=== PATIENT | female | born 1970 | race Caucasian/White ===

== ENCOUNTER 2017-05-19 06:54 | Inpatient (IN) ==
[2017-05-19] MEDS ORDERED: SODIUM CHLORIDE 0.9% 1,000 ML IV STA (07:56)
[2017-05-19] MEDS ORDERED: LEVOFLOXACIN INJ 750 MG in PREMIX 1 EACH IV STA (07:56)
[2017-05-19] MEDS ORDERED: methylPREDNISolone SOD SUC 40 MG/1 ML VIAL IV STA (07:56)
[2017-05-19] MEDS ORDERED: methylPREDNISolone SOD SUC 125 MG/2 ML VIAL ONE (08:06)
[2017-05-19] MEDS: ALBUTEROL/IPRATROPIUM 3 ML NEB RESP TX SCH ×4 (08:15→20:08)
[2017-05-19 08:24] LABS: Basophils # 0.1 10*3/uL (0.0-0.2); Basophils % 0.5 % (0.0-0.8); Eosinophils # 0.3 10*3/uL (0.0-0.87); Eosinophils % 2.1 % (0.00-10.9); Hematocrit 42.8 VOL% (35.7-47.0); Hemoglobin 14.5 GM/DL (12.0-16.0); Immature Granulocytes % 0.5 %; Immature Granulocytes Absolute 0.07 #; Lymphocytes # 4.6 10*3/uL (1.4-4.0); Lymphocytes % 36.3 % (21.3-54.2); Mean Corpuscular HGB Conc 33.9 GM/DL (32-36); Mean Corpuscular Hemoglobin 30 PG (27-34); Mean Corpuscular Volume 88.8 FL (87-102); Mean Platelet Volume 11.7 FL (9.6-12.0); Monocytes # 1.1 10*3/uL (0.11-0.8); Monocytes % 8.2 % (1.7-12.7); Neutrophils # 6.7 10*3/uL (1.4-7.4); Neutrophils % 52.4 % (38.7-73.9); Platelet Count 192 T/CUMM (130-400); Red Blood Count 4.82 MC/CUMM (3.8-5.5); Red Cell Distribution Width 13.5 % (9.3-17.3); White Blood Count 12.7 T/CUMM (4-12)
[2017-05-19] MEDS ORDERED: LEVOFLOXACIN INJ 150 ML IV ONE (08:44)
[2017-05-19 08:53] LABS: Calcium 8.8 MG/DL (8.5-10.1); Osmolality,Calculated 279.4 MOS/KG (273-304); Potassium 3.7 MMOL/L (3.5-5.1)
--- NOTE | 2017-05-19 09:49 | Emergency Department Note ---
Joseph Singh Brittany, am scribing for, and in the presence of, Car Vail MD 08:05. eGnna Singh Thomas, MD, personally performed the services described in this documentation, ascribed by Raquel Ruiz in my presence, and it is both accurate and complete 945 . Arrival - Arrival Chief Complaint: Upper Respiratory Stated Complaint: hurting in chest and ribs when cough ED Nursing Triage Note: C/O Having coughing and congestion since Sun.,states was evaluated by immediate care clinic on sun., states she is having pain in chest when coughs , states they told her she had acute bronchititis., denies having increase temp., + chills at home Mode of Arrival: Ambulatory Limitations: No Limitations Source: Patient, RN Notes Reviewed - History of Present Illness HPI Narrative: Patient is a 46 y/o white female presenting to the ED with c/o cough and congestion which has been ongoing x4 days. Patient reports that she was seen by her PCP on Sunday, May 16 for the same complaints and was diagnosed with Bronchitis and Strep Throat with which she was sent home with Zithromax and Prednisone. Patient reports that she has not seen any improvement in symptoms and has began to experience chest pain with coughing excessively and upon lying in bed has frequent coughing that is only relieved with sitting up. Patient reports that she has been unable to sleep in bed due to excessive coughing spells, requiring her to sleep sitting up. Patient denies any abdominal pain, N/V/D, or fever. She is a current everyday cigarette smoker, but denies any prior history of COPD/Emphysema. Patient denies having any other complaints. Onset (ago): day(s) (4) Consistency: constant Date of Last Menstrual Period: hyst Allergies/Adverse Reactions: Allergies Allergy/AdvReac Type Severity Reaction Status Date / Time No Known Allergies Allergy Unverified 05/19/17 07:07 Review of System - Review of System 12 point system: reviewed and no additional remarkable complaints except as stated - Review of System Constitutional: Present: chills, weakness (generalized). Absent: fever Respiratory: Present: cough, other (congestion) Cardiovascular: Present: chest pain Gastrointestinal: Absent: abdominal pain, nausea, vomiting Medical,Surgical,& Family Hx - Social History Smoking Status: Smoker, status unknown Frequency of Alcohol Use: None Type of Drug Use: None Exam Vital Signs: Vital Signs Temperature 98.3 F 05/19/17 07:36 Pulse Rate 50 L 05/19/17 08:20 Respiratory Rate 16 05/19/17 08:20 Blood Pressure 107/67 05/19/17 07:36 O2 Sat by Pulse Oximetry 98 05/19/17 08:20 - General General appearance: alert, in no apparent distress - Head Head exam: Present: atraumatic, normocephalic - Eye Eye exam: Present: EOMI. Absent: conjunctival injection, periorbital swelling, periorbital tenderness - ENT ENT exam: Present: mucous membranes dry - Neck Neck exam: Present: full ROM, trachea midline - Chest Chest inspection: Present: symmetric chest wall rise - Respiratory Respiratory exam: Present: rhonchi (rhonchi on auscultation of the left base), wheezes (wheezes on auscultation of the left base). Absent: normal lung sounds bilaterally - Cardiovascular Cardiovascular exam: Present: normal rhythm, normal heart sounds. Absent: regular rate - Abdominal Exam Abdominal exam: Present: soft. Absent: distention, tenderness - Extremities Exam Extremities exam: Present: normal capillary refill. Absent: pedal edema, calf tenderness - Neurological Exam Neurological exam: Present: alert, oriented X3. Absent: motor sensory deficit - Psychiatric Psychiatric exam: Present: normal affect, normal mood - Skin Skin exam: Present: warm, dry, normal color Course - Reevaluation(s) Reevaluation #1: Feels somewhat better as long resting in semi-recumbent position Time: 09:46 - Consultations Consultation #1: Hospitalist Time: 09:47 Results - Labs CBC & BMP: 05/19/17 08:10 05/19/17 08:10 Lab Results: I have reviewed the patients labs Labs: Microbiology 05/19/17 07:43 Throat Group A Streptococcus Rapid Screen - Final Negative for Grp A Strep Ag 05/19/17 07:43 Nasal Aspirate Influenza Types A,B Antigen (RENETTA) - Final Negative for Influenza A Ag Negative for Influenza B Ag Laboratory Tests 05/19/17 08:10 WBC 12.7 H RBC 4.82 Hgb 14.5 Hct 42.8 Plt Count 192 Lymph # (Auto) 4.6 H Warrick # (Auto) 1.1 H Laboratory Tests 05/19/17 08:10 Sodium 140 Potassium 3.7 Chloride 106 Carbon Dioxide 29 BUN 18 Creatinine 0.80 BUN/Creatinine Ratio 22.00 H Glucose 83 Calcium 8.8 - Diagnostic Findings Procedure: Chest x-ray: image reviewed by me (My review: no acute changes) Disposition Clinical Impression: Left lower lobe pneumonia Case discussed with: patient Disposition: Still a Patient Time of Disposition: 09:51
[2017-05-19] MEDS ORDERED: ALBUTEROL 2.5 MG/3 ML NEB RESP TX PRN (09:54)
[2017-05-19] MEDS ORDERED: MORPHINE 2 MG/1 ML SYRINGE IV PRN (09:55)
[2017-05-19] MEDS ORDERED: ACETAMINOPHEN 325 MG TABLET PO PRN (09:55)
--- NOTE | 2017-05-19 10:46 | Hospitalist History & Physical ---
<Diana Khan - Last Filed: 05/19/17 10:44> Assessment and Plan (1) Nicotine dependence Status: Acute Assessment and plan: Patient reports current nicotine use. She reports that she is "1 pack smoker weekly". Discussed with patient the merits associated with smoking necessitation. Nicotine patch offered and ordered for the inpatient admission. Current Visit: Yes (2) Left lower lobe pneumonia Status: Acute Assessment and plan: The patient failed outpatient treatment. We will start empiric antibiotics, inhaled bronchodilators, intravenous corticosteroids, and intravenous fluids. We will recheck chest x-ray in a.m. Current Visit: Yes Qualifiers: Pneumonia type: due to unspecified organism Qualified Code(s): J18.1 - Lobar pneumonia, unspecified organism History of Present Illness Chief complaint: Cough and congestion History of present illness: This is a very pleasant 46-year-old female that presented to the ED at [facility] this morning for the evaluation of cough and congestion 4 days. Patient has a medical history significant for nicotine addiction and a surgical history significant for hysterectomy. The patient reported the onset of symptoms 4 days prior to presentation. Her symptoms became severe prompting her to present to her primary care physician on Sunday, May in which she was treated for bronchitis and strep throat. The patient reported that she was given intramuscular injections at the office and subsequently given prescriptions for prednisone, Levaquin, and Tessalon Perles. She reported that she started the regimen as recommended by her primary care physician however, her symptoms fail to improve. She reports an increase in coughing and an inability to lie flat. In addition, she reports that the coughing spells became so severe that she was unable to sleep. As her symptoms continued to worsen,she became alarmed prompting her to present to the ED for further evaluation. The patient was assessed at the time of ED presentation. The patient was noted to be bradycardic with a heart rate recorded at 51. The patient was noted to be violently coughing with increased respiratory effort noted. Prolonged inhaled bronchodilator treatments were initiated. Labs were obtained which were significant for a white blood cell count 12.7. Chest x-ray was essentially negative for any acute cardiopulmonary processes. After brief discussion with both Dr. Vail and Dr. Heart, the patient will be admitted to the hospitalist service for continuation of care. Home medications have been reviewed and reconciled. CODE STATUS discussed; patient is a FULL CODE. Home Medications Medication Instructions Recorded Confirmed Type Albuterol Sulfate [Ventolin HFA] 2 puffs INH Q6H PRN 05/19/17 05/19/17 History Azithromycin 500 mg PO BID 05/19/17 05/19/17 History Benzonatate [Benzonatate] 100 mg PO TID 05/19/17 05/19/17 History predniSONE TAB [PredniSONE] 20 mg PO BID 05/19/17 05/19/17 History Allergies Allergy/AdvReac Type Severity Reaction Status Date / Time Penicillins Allergy Unknown Verified 05/19/17 12:20 Medical,Surgical,& Family Hx - Surgical History Reproductive Surgeries: Surgical HX of;: Hysterectomy - Family History Family History: Reports;: Family Diabetes, Family Heart Disease, Family Hypertension - Social History Smoking Status: Current every day smoker Have you smoked in the last 12 months: Yes Time spent discussing smoking cessation with patient: 3 to 10 minutes Frequency of Alcohol Use: None Type of Drug Use: None Marital Status: Lives With:: Spouse Functional capacity: independent ambulation 12 point system: reviewed and no additional remarkable complaints except as stated - Respiratory Respiratory: Present: cough, dyspnea, dyspnea on exertion, pain on inspiration Exam - Constitutional Vitals: Period Temp Pulse Resp BP Sys/Nguyen Pulse Ox Last 24 Hr 98.3 F-98.3 F 50-65 15-18 107-107/67-67 97-98 General appearance: normal weight, mild distress - Head Head exam: Present: normal inspection, normocephalic, atraumatic - Eye Eye exam: Present: EOMI, conjunctival injection Pupils: Present: JADEN, normal accommodation - ENT ENT exam: Present: normal exam, normal external ear exam, normal oropharynx - Neck Neck exam: Present: normal inspection. Absent: lymphadenopathy, meningismus, thyromegaly - Respiratory Respiratory exam: Present: rhonchi (Noted at the left base upon auscultation), wheezes (Noted at the left base upon auscultation) - Cardiovascular Cardiovascular exam: Present: bradycardia. Absent: diastolic murmur, gallop, rubs, systolic murmur - GI/Abdominal GI/Abdominal exam: Present: normal bowel sounds, soft - Extremities Exam Extremities exam: Present: normal inspection, normal capillary refill, full ROM. Absent: edema - Back Exam Back exam: Present: normal inspection - Neurological Exam Neurological exam: Present: alert, oriented X3, CN II-XII intact - Psychiatric Psychiatric exam: Present: normal affect, normal mood - Skin Skin exam: Present: normal color, warm, dry Results - Labs CBC & BMP: 05/19/17 08:10 05/19/17 08:10 Lab Results: I have reviewed the past 24 hour labs <Garry Heart - Last Filed: 05/19/17 12:46> History of Present Illness History of present illness: Ms. Baca is a 46 year old female who is being admitted to the hospital with pneumonia. She has been treated as an outpatient with oral antibiotics without success. I have interviewed the patient, examined the patient, reviewed all available laboratory and radiographic test results. I agree with the assessment and plans of Diana PEREA. The patient will be admitted to the hospital. She has been begun on intravenous azithromycin and ceftriaxone. Exam - Constitutional Vitals: Period Temp Pulse Resp BP Sys/Nguyen Pulse Ox Last 24 Hr 98.3 F-98.3 F 50-65 15-18 103-115/55-67 96-99 Results - Labs CBC & BMP: 05/19/17 08:10 05/19/17 08:10
--- NOTE | 2017-05-19 10:49 | XRay Report ---
History: Cough Date: 05/19/2017 Study: Chest x-ray PA and lateral Comparison exam: December 01, 2009 The cardiac silhouette is not enlarged. The mediastinal contours are unremarkable. The pulmonary vasculature is not engorged. There is no acute infiltrate. The lungs are generally clear for shallow breath. There is no layering pleural effusion. Osseous structures are unremarkable. Impression: No acute cardiopulmonary process PROCEDURE INTERPRETED AT [facility] DEPARTMENT OF RADIOLOGY Final Report Signed by: Dr. Santa Monet
[2017-05-19] MEDS: SODIUM CHLORIDE 0.9% 1,000 ML IV SCH ×2 (13:00→22:32)
[2017-05-19] MEDS: cefTRIAXone 1,000 MG in SODIUM CHLORIDE 0.9% 100 ML IV SCH (13:38)
[2017-05-19] MEDS: ENOXAPARIN 40 MG/0.4 ML SYRINGE SUBCUT SCH (13:40)
[2017-05-19] MEDS: guaiFENesin 200 MG/10 ML UDCUP PO PRN ×2 (14:35→20:03)
[2017-05-19] MEDS: methylPREDNISolone SOD SUC 40 MG/1 ML VIAL IV SCH ×2 (14:37→20:03)
[2017-05-19] MEDS: AZITHROMYCIN INJ 500 MG in SODIUM CHLORIDE 0.9% 250 ML IV SCH (16:25)
[2017-05-19] MEDS: oxyCODONE/ACETAMINOPHEN 5-325 MG TABLET PO PRN (20:03)
[2017-05-19] MEDS: ZALEPLON 5 MG CAPSULE PO PRN (20:03)
[2017-05-19] MEDS: DOCUSATE SODIUM 100 MG CAPSULE PO SCH (21:13)
[2017-05-19] MEDS: guaiFENesin/DM ER 600-30 MG TABLET PO SCH (21:13)
[2017-05-20] MEDS: ALBUTEROL/IPRATROPIUM 3 ML NEB RESP TX SCH ×4 (00:33→19:48)
[2017-05-20] MEDS: methylPREDNISolone SOD SUC 40 MG/1 ML VIAL IV SCH ×4 (03:35→21:18)
[2017-05-20] MEDS: oxyCODONE/ACETAMINOPHEN 5-325 MG TABLET PO PRN ×3 (03:38→21:17)
[2017-05-20] MEDS: NICOTINE 21 MG/24 HR PATCH TRANSDERM PRN (04:03)
[2017-05-20 04:58] LABS: Basophils % 0.1 % (0.0-0.8); Hematocrit 37.2 VOL% (35.7-47.0); Immature Granulocytes % 1.1 %; Immature Granulocytes Absolute 0.11 #; Lymphocytes # 0.9 10*3/uL (1.4-4.0); Lymphocytes % 9.5 % (21.3-54.2); Mean Corpuscular HGB Conc 33.6 GM/DL (32-36); Mean Corpuscular Hemoglobin 30 PG (27-34); Mean Corpuscular Volume 90.3 FL (87-102); Mean Platelet Volume 12.6 FL (9.6-12.0); Monocytes # 0.5 10*3/uL (0.11-0.8); Monocytes % 4.7 % (1.7-12.7); Neutrophils # 8.2 10*3/uL (1.4-7.4); Neutrophils % 84.6 % (38.7-73.9); Platelet Count 158 T/CUMM (130-400); Red Blood Count 4.12 MC/CUMM (3.8-5.5); Red Cell Distribution Width 13.4 % (9.3-17.3); White Blood Count 9.7 T/CUMM (4-12)
[2017-05-20 05:01] LABS: Hemoglobin 12.5 GM/DL (12.0-16.0)
[2017-05-20 05:20] LABS: Albumin 3.2 G/DL (3.4-5.0); Bilirubin,Total 0.7 MG/DL (0.2-1.0); Calcium 8.3 MG/DL (8.5-10.1); Potassium 4.1 MMOL/L (3.5-5.1); Total Protein 5.7 G/DL (6.4-8.3)
[2017-05-20] MEDS: SODIUM CHLORIDE 0.9% 1,000 ML IV SCH ×3 (06:22→21:18)
--- NOTE | 2017-05-20 08:13 | Hospitalist Progress Note ---
Assessment and Plan (1) Left lower lobe pneumonia Status: Acute Assessment and plan: She appears significantly improved today. I will continue her intravenous azithromycin and ceftriaxone. Current Visit: Yes Qualifiers: Pneumonia type: due to unspecified organism Qualified Code(s): J18.1 - Lobar pneumonia, unspecified organism (2) Nicotine dependence Status: Acute Assessment and plan: She was begun yesterday on a nicotine patch. She is comfortable. Current Visit: Yes Hospitalist: Subjective Interval history: Ms. Baca was admitted to the hospital yesterday with pneumonia. She was begun on treatment with intravenous azithromycin and ceftriaxone. She feels significantly better today, although not yet back to her baseline status. I have discussed with her continuation of intravenous antibiotics for 1-2 more days and then discharged on oral antibiotics. She is in agreement with this plan. Exam - Constitutional Vitals: Period Temp Pulse Resp BP Sys/Nguyen Pulse Ox Last 24 Hr 97.2 F-98.2 F 48-87 15-20 85-115/50-64 92-99 General appearance: no acute distress - Head Head exam: Present: normal inspection - Neck Neck exam: Present: normal inspection - Respiratory Respiratory exam: Present: other (Scattered rhonchi and wheezes.) - Cardiovascular Cardiovascular exam: Present: regular rate and rhythm - GI/Abdominal GI/Abdominal exam: Present: normal bowel sounds, soft, other (Nontender with no palpable masses or hepatosplenomegaly.) - Extremities Exam Extremities exam: Present: normal inspection - Skin Skin exam: Present: normal color, warm, intact Results - Labs CBC & BMP: 05/20/17 02:57 05/20/17 02:57
[2017-05-20] MEDS: guaiFENesin/DM ER 600-30 MG TABLET PO SCH ×2 (09:17→21:24)
[2017-05-20] MEDS: PANTOPRAZOLE 40 MG TABLET PO SCH (09:17)
[2017-05-20] MEDS: DOCUSATE SODIUM 100 MG CAPSULE PO SCH ×2 (09:55→21:17)
--- NOTE | 2017-05-20 12:12 | XRay Report ---
History: Shortness of breath Date: 05/20/2017 Study: Chest x-ray PA and lateral Comparison exam: 05/19/2017 The cardiac silhouette is not enlarged. There is no mediastinal mass. The pulmonary vasculature is not engorged. There is mild strandy atelectatic change in the right middle lobe. The lungs and pleural spaces are otherwise clear. Osseous structures are unremarkable. Impression: Increased mild atelectasis/atelectatic pneumonitis right middle lobe compared to the previous study PROCEDURE INTERPRETED AT [facility] DEPARTMENT OF RADIOLOGY Final Report Signed by: Dr. Santa Monet
[2017-05-20] MEDS: ENOXAPARIN 40 MG/0.4 ML SYRINGE SUBCUT SCH (12:46)
[2017-05-20] MEDS: guaiFENesin 200 MG/10 ML UDCUP PO PRN ×2 (12:47→21:17)
[2017-05-20] MEDS: cefTRIAXone 1,000 MG in SODIUM CHLORIDE 0.9% 100 ML IV SCH (12:47)
[2017-05-20] MEDS: AZITHROMYCIN INJ 500 MG in SODIUM CHLORIDE 0.9% 250 ML IV SCH (15:08)
[2017-05-20] MEDS: ZALEPLON 5 MG CAPSULE PO PRN (21:17)
[2017-05-21] MEDS: ALBUTEROL/IPRATROPIUM 3 ML NEB RESP TX SCH ×4 (01:10→19:42)
[2017-05-21] MEDS: SODIUM CHLORIDE 0.9% 1,000 ML IV SCH ×2 (01:58→09:07)
[2017-05-21] MEDS: methylPREDNISolone SOD SUC 40 MG/1 ML VIAL IV SCH ×4 (01:59→20:34)
[2017-05-21] MEDS: oxyCODONE/ACETAMINOPHEN 5-325 MG TABLET PO PRN ×3 (04:32→20:35)
--- NOTE | 2017-05-21 08:04 | Hospitalist Progress Note ---
Assessment and Plan (1) Left lower lobe pneumonia Status: Acute Assessment and plan: She feels worse today than yesterday. I will continue her intravenous azithromycin and ceftriaxone. I will obtain a repeat chest x-ray today. Current Visit: Yes Qualifiers: Pneumonia type: due to unspecified organism Qualified Code(s): J18.1 - Lobar pneumonia, unspecified organism (2) Nicotine dependence Status: Acute Assessment and plan: She was begun yesterday on a nicotine patch. She is comfortable. Current Visit: Yes Hospitalist: Subjective Interval history: Patient states that she had a bad night. She states that she was coughing and experiencing right-sided chest pain when she took a deep inspiration or when she attempted to lie down. She continues on intravenous azithromycin and ceftriaxone for pneumonia. Exam - Constitutional Vitals: Period Temp Pulse Resp BP Sys/Nguyen Pulse Ox Last 24 Hr 97.1 F-98.0 F 48-83 18-20 99-127/57-67 94-100 General appearance: no acute distress - Head Head exam: Present: normal inspection - Neck Neck exam: Present: normal inspection - Respiratory Respiratory exam: Present: clear to auscultation bilaterally - Cardiovascular Cardiovascular exam: Present: regular rate and rhythm - GI/Abdominal GI/Abdominal exam: Present: normal bowel sounds, soft, other (Nontender with no palpable masses or hepatosplenomegaly.) - Extremities Exam Extremities exam: Present: normal inspection - Skin Skin exam: Present: normal color, warm, intact Results - Labs CBC & BMP: 05/20/17 02:57 05/20/17 02:57
[2017-05-21] MEDS: DOCUSATE SODIUM 100 MG CAPSULE PO SCH ×2 (09:06→20:35)
[2017-05-21] MEDS: guaiFENesin 200 MG/10 ML UDCUP PO PRN ×2 (09:06→20:35)
[2017-05-21] MEDS: guaiFENesin/DM ER 600-30 MG TABLET PO SCH ×2 (09:06→20:35)
[2017-05-21] MEDS: ENOXAPARIN 40 MG/0.4 ML SYRINGE SUBCUT SCH (09:06)
[2017-05-21] MEDS: PANTOPRAZOLE 40 MG TABLET PO SCH (09:06)
[2017-05-21] MEDS: AZITHROMYCIN 250 MG TABLET PO SCH (09:06)
[2017-05-21] MEDS: cefTRIAXone 1,000 MG in SODIUM CHLORIDE 0.9% 100 ML IV SCH (09:14)
--- NOTE | 2017-05-21 09:39 | XRay Report ---
Portable chest Exam date: 05/21/2017 7:59 AM Indication: Shortness of breath, cough Comparison: Previous day at 0744 hours Findings: Cardiomediastinal contours are normal. Persistent stranding densities within the bilateral lower lobes, atelectasis versus infectious process. No acute osseous abnormalities. Visualized upper abdomen demonstrates no acute pathology. Impression: No interval change in the appearance the chest PROCEDURE INTERPRETED AT [facility] DEPARTMENT OF RADIOLOGY Final Report Signed by: Shawn Rice
[2017-05-21] MEDS: ZALEPLON 5 MG CAPSULE PO PRN (22:12)
[2017-05-22] MEDS: ALBUTEROL/IPRATROPIUM 3 ML NEB RESP TX SCH ×4 (00:15→19:28)
[2017-05-22] MEDS: oxyCODONE/ACETAMINOPHEN 5-325 MG TABLET PO PRN ×4 (02:06→21:48)
[2017-05-22] MEDS: guaiFENesin 200 MG/10 ML UDCUP PO PRN ×4 (02:07→21:50)
[2017-05-22] MEDS: NICOTINE 21 MG/24 HR PATCH TRANSDERM PRN (02:07)
[2017-05-22] MEDS: methylPREDNISolone SOD SUC 40 MG/1 ML VIAL IV SCH ×4 (02:10→21:40)
[2017-05-22] MEDS: SODIUM CHLORIDE 0.9% 1,000 ML IV SCH ×4 (02:12→21:39)
[2017-05-22 06:21] LABS: Basophils # 0.1 10*3/uL (0.0-0.2); Basophils % 0.3 % (0.0-0.8); Eosinophils % 0.1 % (0.00-10.9); Hematocrit 37.5 VOL% (35.7-47.0); Hemoglobin 12.3 GM/DL (12.0-16.0); Immature Granulocytes % 4.2 %; Immature Granulocytes Absolute 0.63 #; Lymphocytes # 1.2 10*3/uL (1.4-4.0); Mean Corpuscular HGB Conc 32.8 GM/DL (32-36); Mean Corpuscular Hemoglobin 30 PG (27-34); Mean Corpuscular Volume 91.5 FL (87-102); Mean Platelet Volume 12.1 FL (9.6-12.0); Monocytes # 0.9 10*3/uL (0.11-0.8); Monocytes % 5.8 % (1.7-12.7); Neutrophils # 12.3 10*3/uL (1.4-7.4); Neutrophils % 81.6 % (38.7-73.9); Platelet Count 180 T/CUMM (130-400); Red Cell Distribution Width 13.9 % (9.3-17.3)
[2017-05-22 07:02] LABS: Band Neutrophils 1 % (0-10); Giant Platelets Few; Hypochromasia 1+; Lymphocytes 10 % (20-55); Ovalocytes Slight; Platelet Estimate Normal; Segmented Neutrophils 84 % (50-85); Total Cells Counted 100
[2017-05-22 07:29] LABS: Calcium 8.5 MG/DL (8.5-10.1); Osmolality,Calculated 283.4 MOS/KG (273-304); Potassium 4.6 MMOL/L (3.5-5.1)
[2017-05-22] MEDS: cefTRIAXone 1,000 MG in SODIUM CHLORIDE 0.9% 100 ML IV SCH (08:54)
[2017-05-22] MEDS: PANTOPRAZOLE 40 MG TABLET PO SCH (08:54)
[2017-05-22] MEDS: AZITHROMYCIN 250 MG TABLET PO SCH (08:54)
[2017-05-22] MEDS: DOCUSATE SODIUM 100 MG CAPSULE PO SCH ×2 (08:54→21:43)
[2017-05-22] MEDS: guaiFENesin/DM ER 600-30 MG TABLET PO SCH ×2 (08:54→21:43)
[2017-05-22] MEDS: ENOXAPARIN 40 MG/0.4 ML SYRINGE SUBCUT SCH (08:55)
--- NOTE | 2017-05-22 11:01 | Hospitalist Progress Note ---
Assessment and Plan (1) Left lower lobe pneumonia Status: Acute Assessment and plan: She feels worse today than yesterday. I will continue her intravenous azithromycin and ceftriaxone. Repeat chest x-ray performed yesterday showed no changes. There was was persistent stranding of both lower lobes. I will order a CT scan of the chest and abdomen today. Current Visit: Yes Qualifiers: Pneumonia type: due to unspecified organism Qualified Code(s): J18.1 - Lobar pneumonia, unspecified organism (2) Nicotine dependence Status: Acute Assessment and plan: She was begun yesterday on a nicotine patch. She is comfortable. Current Visit: Yes Hospitalist: Subjective Interval history: Patient continues to feel poorly. She complains of frequent coughing and diffuse abdominal and chest pain. She believes the pain is worsened by her coughing. Exam - Constitutional Vitals: Period Temp Pulse Resp BP Sys/Nguyen Pulse Ox Last 24 Hr 96.2 F-98.2 F 45-85 18-25 99-135/55-76 92-100 General appearance: no acute distress - Head Head exam: Present: normal inspection - Neck Neck exam: Present: normal inspection - Respiratory Respiratory exam: Present: clear to auscultation bilaterally - Cardiovascular Cardiovascular exam: Present: regular rate and rhythm - GI/Abdominal GI/Abdominal exam: Present: normal bowel sounds, soft, other (Nontender with no palpable masses or hepatosplenomegaly.) - Extremities Exam Extremities exam: Present: normal inspection - Skin Skin exam: Present: normal color, warm, intact Results - Labs CBC & BMP: 05/22/17 05:31 05/22/17 05:31
--- NOTE | 2017-05-22 15:48 | CT Report ---
History: Pneumonia. Chest pain. Diffuse abdominal pain Date: 05/22/2017 Study: CT chest, abdomen, and pelvis without contrast Comparison exam: No previous similar Technique: Spiral CT sections were obtained from the lung apices to the pubic symphysis without contrast. CT Chest: There is strandy and hazy atelectasis/infiltrate in the lower lobes bilaterally. There is also some minimal hazy infiltrate in the right upper lobe inferiorly, abutting the major fissure. There is mild right-sided pleural effusion. There is no obvious mediastinal lymphadenopathy or mediastinal mass seen on this noncontrast study. There is no thoracic aortic aneurysm or dissection. There is no acute bony abnormality. CT abdomen: There is no evidence of pneumoperitoneum. The liver, spleen, and bile ducts are unremarkable. The gallbladder is contracted and difficult to evaluate. There is no obvious calcific density gallstone. There is some mild nonspecific diffuse prominence of the head of the pancreas. There is also slight indistinctness of the fat planes surrounding the pancreas. Pancreatitis could represent with a CT appearance such as this. Recommend correlation with serum amylase and lipase. There is no gross renal parenchymal mass. There is no hydronephrosis or hydroureter. There is no radiopaque renal or ureteral stone. There is no evidence of pneumoperitoneum. There is diverticulosis without artur diverticulitis. The appendix appears normal. There is no aortic aneurysm. The right adrenal gland appears normal. The left adrenal gland is enlarged and measures 45 x 37 mm. The left adrenal gland measures equivalent to water density. This could represent incidental adrenal adenoma. There is chronic L5 spondylolysis with mild grade 1 anterolisthesis of L5 with S1. There is prominent degenerative disc narrowing with vacuum disc phenomena and endplate sclerosis at L5-S1. CT pelvis: There is mild nonspecific free fluid in the pelvis. The uterus is not seen and presumably is surgically absent. Impression: Bilateral lower lobe atelectasis/infiltrate. Mild right upper lung infiltrate compatible with pneumonia. Mild right pleural effusion. The CT chest is otherwise unremarkable Mild diffuse prominence of the head of the pancreas with strandy and hazy opacity in the peripancreatic fat. Consider pancreatitis Left adrenal nodule which could represent adenoma Diverticulosis without artur diverticulitis Mild free fluid in the pelvis The CT exam was performed using one or more of the following dose reduction techniques: Automated exposure control, adjustment of the mA and/or kV according to patient size, or use of iterative reconstruction technique. PROCEDURE INTERPRETED AT [facility] DEPARTMENT OF RADIOLOGY Final Report Signed by: Dr. Santa Monet
[2017-05-22] MEDS: HYDROmorphone 2 MG/1 ML VIAL SUBCUT PRN (20:17)
[2017-05-23] MEDS: ZALEPLON 5 MG CAPSULE PO PRN (00:23)
[2017-05-23] MEDS: ALBUTEROL/IPRATROPIUM 3 ML NEB RESP TX SCH ×4 (01:13→19:23)
[2017-05-23] MEDS: HYDROmorphone 2 MG/1 ML VIAL SUBCUT PRN ×3 (02:37→15:28)
[2017-05-23] MEDS: methylPREDNISolone SOD SUC 40 MG/1 ML VIAL IV SCH ×4 (02:37→21:31)
[2017-05-23] MEDS: oxyCODONE/ACETAMINOPHEN 5-325 MG TABLET PO PRN (05:16)
[2017-05-23] MEDS: guaiFENesin 200 MG/10 ML UDCUP PO PRN ×4 (05:17→22:46)
[2017-05-23 06:46] LABS: Basophils # 0.1 10*3/uL (0.0-0.2); Basophils % 0.5 % (0.0-0.8); Eosinophils % 0.1 % (0.00-10.9); Hematocrit 37.7 VOL% (35.7-47.0); Hemoglobin 12.5 GM/DL (12.0-16.0); Immature Granulocytes % 6.3 %; Immature Granulocytes Absolute 0.96 #; Lymphocytes # 1.3 10*3/uL (1.4-4.0); Lymphocytes % 8.4 % (21.3-54.2); Mean Corpuscular HGB Conc 33.2 GM/DL (32-36); Mean Corpuscular Hemoglobin 30 PG (27-34); Mean Corpuscular Volume 91.5 FL (87-102); Mean Platelet Volume 12.1 FL (9.6-12.0); Monocytes # 0.7 10*3/uL (0.11-0.8); Monocytes % 4.8 % (1.7-12.7); Neutrophils # 12.1 10*3/uL (1.4-7.4); Neutrophils % 79.9 % (38.7-73.9); Platelet Count 202 T/CUMM (130-400); Red Blood Count 4.12 MC/CUMM (3.8-5.5); Red Cell Distribution Width 14.1 % (9.3-17.3); White Blood Count 15.2 T/CUMM (4-12)
[2017-05-23 07:10] LABS: Giant Platelets Few; Hypochromasia 1+; Lymphocytes 10 % (20-55); Platelet Estimate Adequate; Segmented Neutrophils 84 % (50-85); Total Cells Counted 100
[2017-05-23 07:15] LABS: Calcium 8.2 MG/DL (8.5-10.1); Osmolality,Calculated 284.3 MOS/KG (273-304); Potassium 4.5 MMOL/L (3.5-5.1)
[2017-05-23] MEDS: cefTRIAXone 1,000 MG in SODIUM CHLORIDE 0.9% 100 ML IV SCH (08:45)
[2017-05-23] MEDS: SODIUM CHLORIDE 0.9% 1,000 ML IV SCH ×2 (08:45→18:41)
[2017-05-23] MEDS: AZITHROMYCIN 250 MG TABLET PO SCH (08:46)
[2017-05-23] MEDS: PANTOPRAZOLE 40 MG TABLET PO SCH (08:46)
[2017-05-23] MEDS: DOCUSATE SODIUM 100 MG CAPSULE PO SCH ×2 (08:46→21:30)
[2017-05-23] MEDS: ENOXAPARIN 40 MG/0.4 ML SYRINGE SUBCUT SCH (08:47)
[2017-05-23] MEDS: NICOTINE 21 MG/24 HR PATCH TRANSDERM PRN (08:59)
[2017-05-23] MEDS: guaiFENesin/DM ER 600-30 MG TABLET PO SCH ×2 (08:59→21:30)
--- NOTE | 2017-05-23 09:14 | Hospitalist Progress Note ---
Assessment and Plan (1) Left lower lobe pneumonia Status: Acute Assessment and plan: The CT scan of her chest yesterday demonstrated her pneumonia to be bilateral. She continues on intravenous ceftriaxone and oral azithromycin. She is mildly better today. Current Visit: Yes Qualifiers: Pneumonia type: due to unspecified organism Qualified Code(s): J18.1 - Lobar pneumonia, unspecified organism (2) Nicotine dependence Status: Acute Assessment and plan: She was begun yesterday on a nicotine patch. She is comfortable. Current Visit: Yes (3) Pancreatitis Status: Acute Assessment and plan: The CT scan of the abdomen demonstrated stranding of the head of the pancreas suggestive of pancreatitis. She is not presently experiencing abdominal pain, nausea, or vomiting. I will obtain an amylase and lipase to evaluate. Current Visit: Yes (4) Lumbosacral disc disease Status: Acute Assessment and plan: The CT scan of the abdomen demonstrated her to have a lumbosacral disc disease. She is not presently complaining of low back pain. Current Visit: Yes Hospitalist: Subjective Interval history: Patient feels somewhat better today. Her main complaint today is constipation. She underwent a CT scan of the chest and abdomen yesterday demonstrating bilateral infiltrates compatible with pneumonia, stranding of the pancreas suggestive of pancreatitis, and lumbosacral disc disease. She continues on intravenous ceftriaxone and oral azithromycin. Exam - Constitutional Vitals: Period Temp Pulse Resp BP Sys/Nguyen Pulse Ox Last 24 Hr 96.8 F-97.7 F 52-77 18-55 108-134/59-74 94-99 General appearance: no acute distress - Head Head exam: Present: normal inspection - Neck Neck exam: Present: normal inspection - Respiratory Respiratory exam: Present: clear to auscultation bilaterally - Cardiovascular Cardiovascular exam: Present: regular rate and rhythm - GI/Abdominal GI/Abdominal exam: Present: normal bowel sounds, soft, other (Nontender with no palpable masses or hepatosplenomegaly.) - Extremities Exam Extremities exam: Present: normal inspection - Skin Skin exam: Present: normal color, warm, intact Results - Labs CBC & BMP: 05/23/17 06:14 05/23/17 06:14
[2017-05-23] MEDS ORDERED: BISACODYL 5 MG TABLET PO PRN (09:18)
[2017-05-23] MEDS: ONDANSETRON 4 MG/2 ML VIAL IV PRN ×2 (10:55→15:28)
[2017-05-23] MEDS: POLYETHYLENE GLYCOL POWDER 17 GM PACK PO SCH (11:16)
[2017-05-23] MEDS: HYDROmorphone 2 MG/1 ML VIAL IV PRN (22:51)
[2017-05-24] MEDS: ALBUTEROL/IPRATROPIUM 3 ML NEB RESP TX SCH ×2 (00:16→07:20)
[2017-05-24] MEDS: oxyCODONE/ACETAMINOPHEN 5-325 MG TABLET PO PRN (01:34)
[2017-05-24] MEDS: guaiFENesin 200 MG/10 ML UDCUP PO PRN ×2 (01:37→06:06)
[2017-05-24] MEDS: ZALEPLON 5 MG CAPSULE PO PRN (02:30)
[2017-05-24] MEDS: SODIUM CHLORIDE 0.9% 1,000 ML IV SCH ×2 (02:32→12:07)
[2017-05-24] MEDS: HYDROmorphone 2 MG/1 ML VIAL IV PRN ×2 (03:32→06:30)
[2017-05-24] MEDS: methylPREDNISolone SOD SUC 40 MG/1 ML VIAL IV SCH (03:35)
[2017-05-24 06:37] LABS: Basophils # 0.1 10*3/uL (0.0-0.2); Basophils % 0.8 % (0.0-0.8); Hematocrit 38.4 VOL% (35.7-47.0); Immature Granulocytes % 7.8 %; Immature Granulocytes Absolute 1.38 #; Lymphocytes # 1.4 10*3/uL (1.4-4.0); Lymphocytes % 8.1 % (21.3-54.2); Mean Corpuscular HGB Conc 33.9 GM/DL (32-36); Mean Corpuscular Hemoglobin 30 PG (27-34); Mean Corpuscular Volume 89.7 FL (87-102); Mean Platelet Volume 11.8 FL (9.6-12.0); Monocytes # 0.9 10*3/uL (0.11-0.8); Monocytes % 5.1 % (1.7-12.7); Neutrophils # 13.9 10*3/uL (1.4-7.4); Neutrophils % 78.2 % (38.7-73.9); Platelet Count 208 T/CUMM (130-400); Red Blood Count 4.28 MC/CUMM (3.8-5.5); Red Cell Distribution Width 13.9 % (9.3-17.3); White Blood Count 17.8 T/CUMM (4-12)
[2017-05-24 07:05] LABS: Albumin 3.3 G/DL (3.4-5.0); Bilirubin,Total 0.5 MG/DL (0.2-1.0); Calcium 8.8 MG/DL (8.5-10.1); Osmolality,Calculated 280.4 MOS/KG (273-304); Potassium 4.5 MMOL/L (3.5-5.1)
[2017-05-24 07:06] LABS: Band Neutrophils 2 % (0-10); Giant Platelets Few; Hypochromasia 1+; Lymphocytes 10 % (20-55); Platelet Estimate Adequate; Segmented Neutrophils 85 % (50-85); Total Cells Counted 100
[2017-05-24 07:44] VITALS: BP 123/72
--- NOTE | 2017-05-24 08:10 | Hospitalist Progress Note ---
Assessment and Plan (1) Left lower lobe pneumonia Status: Acute Assessment and plan: The CT scan of her chest demonstrated her pneumonia to be bilateral. She continues on intravenous ceftriaxone and oral azithromycin. She is mildly better today. Current Visit: Yes Qualifiers: Pneumonia type: due to unspecified organism Qualified Code(s): J18.1 - Lobar pneumonia, unspecified organism (2) Nicotine dependence Status: Acute Assessment and plan: She was begun yesterday on a nicotine patch. She is comfortable. Current Visit: Yes (3) Pancreatitis Status: Acute Assessment and plan: The CT scan of the abdomen demonstrated stranding of the head of the pancreas suggestive of pancreatitis. She is not presently experiencing abdominal pain, nausea, or vomiting. Laboratory testing demonstrated her amylase to be 46 and her lipase to be 126, both of which are normal. There is no clinical evidence of pancreatitis. Current Visit: Yes (4) Lumbosacral disc disease Status: Acute Assessment and plan: The CT scan of the abdomen demonstrated her to have a lumbosacral disc disease. She is not presently complaining of low back pain. Current Visit: Yes Hospitalist: Subjective Interval history: Patient is slowly improving. She is walking in the french with assistance. She continues to complain of weakness, coughing, and wheezing. She continues to be treated with intravenous ceftriaxone, oral azithromycin, intravenous methylprednisolone, and albuterol ipratropium nebulizer therapy. Exam - Constitutional Vitals: Period Temp Pulse Resp BP Sys/Nguyen Pulse Ox Last 24 Hr 96.5 F-97.9 F 55-70 10-20 119-136/59-72 91-98 General appearance: no acute distress - Head Head exam: Present: normal inspection - Neck Neck exam: Present: normal inspection - Respiratory Respiratory exam: Present: other (Scattered wheezes.) - Cardiovascular Cardiovascular exam: Present: regular rate and rhythm - GI/Abdominal GI/Abdominal exam: Present: normal bowel sounds, soft, other (Nontender with no palpable masses or hepatosplenomegaly.) - Extremities Exam Extremities exam: Present: normal inspection - Skin Skin exam: Present: normal color, warm, intact Results - Labs CBC & BMP: 05/24/17 06:03 05/24/17 06:03
[2017-05-24] MEDS: POLYETHYLENE GLYCOL POWDER 17 GM PACK PO SCH (08:35)
[2017-05-24] MEDS: NICOTINE 21 MG/24 HR PATCH TRANSDERM PRN (08:36)
[2017-05-24] MEDS: PANTOPRAZOLE 40 MG TABLET PO SCH (08:39)
[2017-05-24] MEDS: DOCUSATE SODIUM 100 MG CAPSULE PO SCH (08:39)
[2017-05-24] MEDS: AZITHROMYCIN 250 MG TABLET PO SCH (08:39)
[2017-05-24] MEDS: guaiFENesin/DM ER 600-30 MG TABLET PO SCH (08:39)
[2017-05-24] MEDS: ENOXAPARIN 40 MG/0.4 ML SYRINGE SUBCUT SCH ×2 (08:39→08:42)
--- NOTE | 2017-05-24 08:52 | Discharge Summary ---
Hospital Course - Hospital Course Hospital Course: This is a very pleasant 46-year-old female that presented to the ED at [facility] this morning for the evaluation of cough and congestion 4 days. Patient has a medical history significant for nicotine addiction and a surgical history significant for hysterectomy. The patient reported the onset of symptoms 4 days prior to presentation. Her symptoms became severe prompting her to present to her primary care physician on Sunday, May in which she was treated for bronchitis and strep throat. The patient reported that she was given intramuscular injections at the office and subsequently given prescriptions for prednisone, Levaquin, and Tessalon Perles. She reported that she started the regimen as recommended by her primary care physician however, her symptoms fail to improve. She reports an increase in coughing and an inability to lie flat. In addition, she reports that the coughing spells became so severe that she was unable to sleep. As her symptoms continued to worsen,she became alarmed prompting her to present to the ED for further evaluation. The patient was assessed at the time of ED presentation. The patient was noted to be bradycardic with a heart rate recorded at 51. The patient was noted to be violently coughing with increased respiratory effort noted. Prolonged inhaled bronchodilator treatments were initiated. Labs were obtained which were significant for a white blood cell count 12.7. Chest x-ray was essentially negative for any acute cardiopulmonary processes. Patient was admitted to the hospital with bilateral pneumonia. She was treated with intravenous ceftriaxone, oral azithromycin, intravenous methylprednisolone , and albuterol ipratropium nebulizer therapy. A CT scan of the chest demonstrated evidence of bilateral pneumonia with no other acute cardiopulmonary pathology. She slowly improved during her hospitalization. The time of her discharge she was comfortable and eager to go home. Diagnosis - Discharge Diagnosis (1) Left lower lobe pneumonia Status: Acute (2) Nicotine dependence Status: Chronic (3) Pancreatitis Status: Ruled-out (4) Lumbosacral disc disease Status: Chronic Discharge Plan - Discharge Data Disposition: Disch To Home/Self Care Condition at Discharge: Stable Discharge Diet: advance to your usual diet Activity: resume usual activities as tolerated - Discharge Medications New Nicotine 21 mg/24 Hr Patch [Nicoderm CQ 21 mg/24 hr Patch] 1 patch TRANSDERM DAILY PRN #30 patch PRN Reason: Nicotine Withdrawal Continue Albuterol Sulfate [Ventolin HFA] 2 puffs INH Q6H PRN PRN Reason: Shortness Of Breath/Wheezing Azithromycin 500 mg PO BID #10 predniSONE TAB [PredniSONE] 20 mg PO BID Benzonatate 100 mg PO TID - Follow Up or Referral - Forms/Instructions Exam - Constitutional Vitals: Period Temp Pulse Resp BP Sys/Nguyen Pulse Ox Last 24 Hr 96.5 F-97.9 F 55-70 10-20 119-136/59-72 91-98 Discharge Results Procedures and tests throughout hospitalization: Pending Orders 05/19/17 08:10 Blood Culture Stat 05/19/17 09:55 Sputum Culture and Gram Stain Stat Labs on day of discharge: Labs from last 24 hours 05/24/17 05/24/17 06:03 06:03 WBC 17.8 H RBC 4.28 Hgb 13.0 Hct 38.4 MCV 89.7 MCH 30 MCHC 33.9 RDW 13.9 Plt Count 208 MPV 11.8 Neut % (Auto) 78.2 H Lymph % (Auto) 8.1 L Burnet % (Auto) 5.1 Eos % (Auto) 0.0 Baso % (Auto) 0.8 Neut # (Auto) 13.9 H Lymph # (Auto) 1.4 Burnet # (Auto) 0.9 H Eos # (Auto) 0.0 Baso # (Auto) 0.1 Total Counted 100 Immature Gran % 7.8 Nucleated RBC % 0.0 Immature Gran # 1.38 Segmented Neutrophils 85 Band Neutrophils 2 Lymphocytes 10 L Monocytes 3 Nucleated RBCs # 0.00 Platelet Estimate Adequate Giant Platelets Few Immature Plt Fraction 0.0 Hypochromasia 1+ Sodium 140 Potassium 4.5 Chloride 101 Carbon Dioxide 33 H Anion Gap 10.5 BUN 14 Creatinine 0.70 GFR Calculation 116 BUN/Creatinine Ratio 20.00 Glucose 114 H Calculated Osmolality 280.4 Calcium 8.8 Total Bilirubin 0.50 AST 37 ALT 351 H Alkaline Phosphatase 93 Total Protein 6.0 L Albumin 3.3 L Globulin 2.7 Albumin/Globulin Ratio 1.2 Amylase 46 Lipase 126.0 Preliminary micro results at discharge 05/19/17 08:10 Blood Culture - Preliminary Blood No growth at 3 days 05/19/17 08:10 Blood Culture - Preliminary Blood No growth at 3 days DS: Provider Date of admission: 05/19/17 09:51 Primary care physician: . Gloria PCP Attending physician on admission: Garry Heart Discharging clinician: Garry Heart
[2017-05-24] MEDS ORDERED: predniSONE 20 MG TABLET PO SCH (09:00)
[2017-05-24] MEDS: cefTRIAXone 1,000 MG in SODIUM CHLORIDE 0.9% 100 ML IV SCH (09:58)
== END 2017-05-24 11:16 | disposition home or self-care (01) | DRG 195 ==
LOC: N.ED 06:54 → N.EDINP 09:51 → N.2E 11:54